=== PATIENT | female | born 1995 | race Caucasian/White ===

== ENCOUNTER → 2020-08-25 | Outpatient (CLI) | payer SELFPAY ==
[~2020-08-25] MED LIST: CLIN1LOT TOP; IBUP-1022 PO; IBUP-1720 PO; MIRA0.5T PO; NICOINH INH; PERCOCET PO; PRAZ2CAP PO; PROAAER10 INH
[2020-08-25 13:51] LABS: BASO % 0.2 % (0.0-1.0); EOS # 0.2 10^3/uL (0.0-0.5); EOS % 2.2 % (0.0-3.0); HEMATOCRIT 40.6 % (36.0-47.0); HEMOGLOBIN 13.1 g/dl (12.0-15.5); LYMPH # 2.9 10^3/uL (1.5-5.0); LYMPH % 32.6 % (24.0-44.0); MEAN CORPUSCULAR HEMOGLOBIN 28.7 pg (27.0-33.0); MEAN CORPUSCULAR HGB CONC 32.3 g/dl (32.0-36.5); MEAN CORPUSCULAR VOLUME 88.8 fl (80.0-96.0); MONO # 0.7 10^3/uL (0.0-0.8); MONO % 8.3 % (2.0-8.0); NEUTROPHILS # 4.9 10^3/uL (1.5-8.5); NEUTROPHILS % 56.4 % (36.0-66.0); PLATELET COUNT, AUTOMATED 195 10^3/uL (150-450); RED BLOOD COUNT 4.57 10^6/uL (4.00-5.40); WHITE BLOOD COUNT 8.8 10^3/uL (4.0-10.0)
[2020-08-25 13:56] LABS: AMORPHOUS SEDIMENT SMALL (NEGATIVE); APPEARANCE, URINE CLOUDY (CLEAR); BACTERIA, URINE AUTO NEGATIVE (NEGATIVE); BILIRUBIN, URINE AUTO NEGATIVE (NEGATIVE); BLOOD, URINE BLOOD NEGATIVE (NEGATIVE); COLOR, URINE YELLOW (YELLOW); GLUCOSE, URINE (UA) AUTO NEGATIVE (NEGATIVE); KETONE, URINE AUTO TRACE mg/dL (NEGATIVE); LEUKOCYTE ESTERASE, URINE AUTO 2+ (NEGATIVE); MUCUS, URINE SMALL (NEGATIVE); NITRITE, URINE AUTO NEGATIVE (NEGATIVE); PROTEIN, URINE AUTO NEGATIVE (NEGATIVE); RBC, URINE AUTO 4 /HPF (0-3); SPECIFIC GRAVITY URINE AUTO 1.026 (1.002-1.035); SQUAMOUS EPITHELIAL CELL UR AU 14 /HPF (0-6); WBC, URINE AUTO 20 /HPF (0-3)
[2020-08-25 14:24] LABS: ALT/SGPT 143 U/L (12-78); BILIRUBIN,TOTAL 0.3 MG/DL (0.2-1.0); BLOOD UREA NITROGEN 10 MG/DL (7-18); CARBON DIOXIDE LEVEL 28 MEQ/L (21-32); CHLORIDE LEVEL 108 MEQ/L (98-107); CREATININE FOR GFR 0.54 MG/DL (0.55-1.30); GLOMERULAR FILTRATION RATE > 60.0 (>60); GLUCOSE, FASTING 93 MG/DL (70-100); POTASSIUM SERUM 3.9 MEQ/L (3.5-5.1); SODIUM LEVEL 141 MEQ/L (136-145); TOTAL PROTEIN 7.4 GM/DL (6.4-8.2)
[2020-08-25 14:45] LABS: HEPATITIS B SURFACE ANTIGEN NEGATIVE (NEGATIVE)
[2020-08-25 15:12] LABS: HEPATITIS B CORE ANTIBODY IGM NEGATIVE (NEGATIVE)
[2020-08-25 15:15] LABS: HEPATITIS A ANTIBODY IGM NEGATIVE (NEGATIVE)
[2020-08-25 15:16] LABS: HEPATITIS C VIRUS ABY INDEX > 11.0 INDEX (<0.8)
== END ==
LOC: M LAB 13:10
PROVIDERS: ATTEND Physician Assistant Medical
DX: Z02.2 Encounter for examination for admission to residential institution (principal)

== ENCOUNTER 2020-08-30 02:45 | Observation (INO) | payer BC, SELFPAY ==
[~2020-08-30] VITALS: Ht 152.4 cm; Wt 63.6 kg
[2020-08-30] MEDS ORDERED: ISOVUE-370 76% 100ML VIAL As Ordered ONE (03:20)
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
[2020-08-30 04:38] LABS: BASO % 0.4 % (0.0-1.0); EOS # 0.1 10^3/uL (0.0-0.5); EOS % 0.8 % (0.0-3.0); HEMATOCRIT 42.5 % (36.0-47.0); HEMOGLOBIN 13.3 g/dl (12.0-15.5); LYMPH # 2.4 10^3/uL (1.5-5.0); LYMPH % 24.8 % (24.0-44.0); MEAN CORPUSCULAR HEMOGLOBIN 28.4 pg (27.0-33.0); MEAN CORPUSCULAR HGB CONC 31.3 g/dl (32.0-36.5); MEAN CORPUSCULAR VOLUME 90.8 fl (80.0-96.0); MONO # 0.5 10^3/uL (0.0-0.8); MONO % 5.7 % (2.0-8.0); NEUTROPHILS # 6.4 10^3/uL (1.5-8.5); NEUTROPHILS % 67.4 % (36.0-66.0); PLATELET COUNT, AUTOMATED 226 10^3/uL (150-450); RED BLOOD COUNT 4.68 10^6/uL (4.00-5.40); WHITE BLOOD COUNT 9.6 10^3/uL (4.0-10.0)
[2020-08-30] MEDS ORDERED: ACETAMINOPHEN *IV* 650 MG in IV 1 EA IV ONE (05:00)
[2020-08-30 05:06] LABS: BILIRUBIN,DIRECT 0.1 MG/DL (0.0-0.2); BILIRUBIN,TOTAL 0.2 MG/DL (0.2-1.0); ETHYL ALCOHOL (ETHANOL) 0.213 % (0.000-0.010); TOTAL PROTEIN 7.9 GM/DL (6.4-8.2)
[2020-08-30 05:16] LABS: AMPHETAMINES LEVEL URINE NEGATIVE (NEGATIVE); BARBITURATES URINE NEGATIVE (NEGATIVE); BENZODIAZEPINES URINE NEGATIVE (NEGATIVE); CANNABINOIDS URINE NEGATIVE (NEGATIVE); COCAINE METABOLITE URINE NEGATIVE (NEGATIVE); METHADONE URINE NEGATIVE (NEGATIVE); OPIATES URINE NEGATIVE (NEGATIVE); PHENCYCLIDINE URINE NEGATIVE (NEGATIVE)
[2020-08-30] MEDS ORDERED: ACETAMINOPHEN TAB 650MG DOSE (2X325MG) PO PRN (05:40)
[2020-08-30] MEDS ORDERED: PRAZ2CAP PO (06:29)
[2020-08-30] MEDS ORDERED: IBUP-1720 PO (06:29)
[2020-08-30] MEDS ORDERED: MIRA0.5T PO (06:29)
[2020-08-30] MEDS ORDERED: PROAAER10 INH (06:29)
[2020-08-30] MEDS ORDERED: CLIN1LOT TOP (06:29)
[2020-08-30] MEDS ORDERED: NICOINH INH (06:29)
--- NOTE | 2020-08-30 08:11 | ECGEPIP ---
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
[2020-08-30] MEDS: PERCOCET 5MG/325MG TAB PO PRN ×3 (10:36→20:42)
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
[2020-08-30] MEDS: KETOROLAC 30 MG/ML 1ML VIAL IV PRN ×2 (13:32→21:36)
[2020-08-30 14:00] VITALS: BP 121/68
[2020-08-30 22:00] VITALS: BP 106/56
[2020-08-31] MEDS: PERCOCET 5MG/325MG TAB PO PRN ×3 (01:14→17:08)
[2020-08-31 06:00] VITALS: BP 101/68
[2020-08-31] MEDS: KETOROLAC 30 MG/ML 1ML VIAL IV PRN (08:48)
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
[2020-08-31] MEDS ORDERED: PERCOCET PO (12:27)
[2020-08-31] MEDS ORDERED: IBUP-1022 PO (12:27)
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
--- NOTE | 2020-09-02 20:14 | ECGEPIP ---
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 No remarkable changes but slower heart rate Electronically Signed on 09-02-2020 20:13:38 EDT by Armin Rodriguez
== END 2020-08-31 17:12 | disposition home or self-care (01) ==
LOC: M ED 02:45 → M ED INP 05:39 → ENRESERV 07:58 → M MSPAV 08:36
PROVIDERS: ADMIT Surgery; ATTEND Surgery
DX: S22.22XA Fracture of body of sternum, initial encounter for closed fracture (principal); S81.811A Laceration without foreign body, right lower leg, initial encounter; S81.012A Laceration without foreign body, left knee, initial encounter; S30.0XXA Contusion of lower back and pelvis, initial encounter; V47.5XXA Car driver injured in collision with fixed or stationary object in traffic accident, initial encounter; Y92.410 Unspecified street and highway as the place of occurrence of the external cause; Y99.9 Unspecified external cause status; F10.120 Alcohol abuse with intoxication, uncomplicated; F17.290 Nicotine dependence, other tobacco product, uncomplicated; Z79.899 Other long term (current) drug therapy; Z88.8 Allergy status to other drugs, medicaments and biological substances; G25.81 Restless legs syndrome; G47.00 Insomnia, unspecified; Y93.89 Activity, other specified
CPT/HCPCS: 70450; 71046; 71260; 72125; 74177; 80047; 80076; 80307; 82077; 84702; 85025; 86850; 86900; 86901; 87798; 93005; 96365; 96375; 96376; 99285; J0131; J1885; Q9967